=== PATIENT | female | born 1955 | race Caucasian/White ===

== ENCOUNTER 2017-12-28 08:51 | Observation (INO) | payer OTHER ==
[2017-12-28] VITALS (7 sets, daily range): BP systolic 112–159; BP diastolic 60–89; PULSE 74–91; RESP 16–20; TEMP 98.3–103; O2SAT 97–100
[~2017-12-28] VITALS: Ht 160 cm; Wt 60.0 kg
[~2017-12-28 08:51] MED LIST: ASPI81TA11 OR; CALCCHW25 PO; LACO100 PO; LEVE500 PO; MIRTA15 PO; PHEN100 PO; TAB-TAB PO; TOPI25 PO
[2017-12-28] MEDS ORDERED: SODIUM CHLOR 0.9% 1000 ML INJ 1,000 ML IV ONE (09:48)
--- NOTE | 2017-12-28 09:59 | PD ---
HPI Chief Complaint: Seizure Time Seen by Provider: 09:43 Travel History International Travel<30 days: No Contact w/Intl Traveler<30days: No Traveled to known affect area: No History of Present Illness HPI The patient is a 62-year-old female who presents to the emergency department via EMS for possible seizure. The patient apparently was found in her motel room by her neighbor, with her door open, sitting on the toilet naked. According to EMS the neighbor found her sitting on the toilet, naked, somewhat confused with the shower running. There was no witnessed seizure. The patient does have a history of psychosis and seizures according to the EMR. The patient states she does take Dilantin and has a vagal nerve stimulator for her seizures, however, is unable to tell me who her neurologist is. She was unable to tell me the dosing of Dilantin and when she last took her Dilantin. She denies any physical complaints but is a somewhat poor and limited historian who appears to be somewhat postictal. She denies any headache , chest pain, shortness of breath, nausea, vomiting, or abdominal pain during the review of systems, however, limited historian. PFSH Past Medical History Arthritis: No Asthma: Yes Autoimmune Disease: No Blood Disorders: No Anxiety: Yes Depression: Yes Heart Rhythm Problems: Yes (irregular heartbeat) Cancer: No Cardiovascular Problems: No High Cholesterol: No Chemotherapy: No Chest Pain: Yes Congestive Heart Failure: No COPD: Yes Cerebrovascular Accident: No Diabetes: No Diminished Hearing: No Endocrine: No Gastrointestinal Disorders: No GERD: No Genitourinary: Yes Headaches: Yes Hiatal Hernia: No Hypertension: Yes Immune Disorder: No Implanted Vascular Access Dvce: Yes Kidney Stones: No Musculoskeletal: No Neurologic: Yes (seizures/epileptic/restless leg syndrome) Psychiatric: Yes (Organic affective disease.) Reproductive: No Respiratory: Yes Migraines: Yes Radiation Therapy: No Renal Failure: No Seizures: Yes (GRANDMAL/Patient reports since she was 8 months old.) Sickle Cell Disease: No Sleep Apnea: No Thyroid Disease: No Ulcer: No PNEUMOCCOCAL Vaccine (Year): 2011 Menopausal: Yes : 3 Para: 2 Miscarriage: 1 Tubal Ligation: Yes Past Surgical History Abdominal Surgery: Yes AICD: No Arteriovenous Shunt: No Body Medical Devices: Vascular access device Cardiac Surgery: No Section: Yes (X 3) Ear Surgery: No Endocrine Surgery: No Eye Surgery: No Genitourinary Surgery: No Gynecologic Surgery: Yes (LUMPECTOMY L BREAST ) Insulin Pump: No Joint Replacement: No Neurologic Surgery: Yes (R TEMPORAL W/ STIMULATOR) Oral Surgery: No Pacemaker: No Thoracic Surgery: Yes (R LOBECTOMY) Other Surgery: Yes (VAGUS NERVE STIMULATOR) Social History Alcohol Use: No Tobacco Use: Yes (1 PPD) Substance Use: No Allergies-Medications (Allergen,Severity, Reaction): Coded Allergies: No Known Allergies (Verified Adverse Reaction, Unknown, 12/28/17) Reported Meds & Prescriptions Reported Meds & Active Scripts Active Topamax (Topiramate) 25 Mg Tab 50 Mg PO HS 15 Days Mirtazapine 15 Mg Tab 15 Mg PO HS 15 Days Reported Calcium + D (Calcium Carbonate/Cholecalciferol) Chw 1 Tab PO DAILY Multivitamin (Multivitamins) 1 Tab Tab 1 Tab PO DAILY Vimpat (Lacosamide) 100 Mg Tab 100 Mg PO BID Keppra (Levetriacetam) 500 Mg Tab 500 Mg PO BID Dilantin 100 Mg Kapseals (Phenytoin Sodium) 100 Mg Caper 200 Mg PO Q12H Aspirin EC 81 mg (Aspirin) 81 Mg Tab 81 Mg OR DAILY Review of Systems ROS Limitations: Poor Historian Except as stated in HPI: all other systems reviewed are Neg Cardiovascular: No: Chest Pain or Discomfort Respiratory: No: Shortness of Breath Gastrointestinal: No: Nausea, Vomiting Musculoskeletal: No: Weakness Neurologic: Positive: Change in Mentation, Seizures, No: Headache Physical Exam Narrative GENERAL: Awake, alert, pleasant 62-year-old female appears her stated age and is in no acute respiratory distress. She does appear postictal. SKIN: Focused skin assessment warm/dry. Old appearing abrasion to posterior left shoulder. HEAD: Atraumatic. Normocephalic. EYES: Pupils equal and round. 5 mm bilateral and reactive. ENT: No nasal bleeding or discharge. No visible teeth. NECK: Trachea midline. No JVD. CARDIOVASCULAR: Regular, tachycardic with a heart rate 105. Vagal nerve stimulator left upper chest wall. RESPIRATORY: No accessory muscle use. Clear to auscultation. Breath sounds equal bilaterally. GASTROINTESTINAL: Abdomen soft, non-tender, nondistended. No rebound tenderness. MUSCULOSKELETAL: No obvious deformities. No clubbing. No cyanosis. No edema. NEUROLOGICAL: Awake and alert. No obvious cranial nerve deficits. Motor grossly within normal limits. Normal speech. Oriented to person, does not answer questions in regards to month, year, or public administration professor. PSYCHIATRIC: Appears postictal. Data Data Last Documented VS Vital Signs Date Time Temp Pulse Resp B/P (MAP) Pulse Ox O2 Delivery O2 Flow Rate FiO2 12/28/17 10:14 99 Room Air 12/28/17 10:06 92 20 12/28/17 09:58 98.3 159/89 (112) Orders Orders Complete Blood Count With Diff (12/28/17 09:48) Alcohol (Ethanol) (12/28/17 09:48) Phenytoin (Dilantin) (12/28/17 09:48) Drug Screen, Random Urine (12/28/17 09:48) Electrocardiogram (12/28/17 ) Ct Brain W/O Iv Contrast(Rout) (12/28/17 ) Blood Glucose (12/28/17 09:48) Ecg Monitoring (12/28/17 09:48) Iv Access Insert/Monitor (12/28/17 09:48) Oximetry (12/28/17 09:48) Comprehensive Metabolic Panel (12/28/17 09:48) Sodium Chlor 0.9% 1000 Ml Inj (Ns 1000 M (12/28/17 09:48) Sodium Chloride 0.9% Flush (Ns Flush) (12/28/17 10:00) Lorazepam Inj (Ativan Inj) (12/28/17 10:00) Lactic Acid (12/28/17 09:48) Phenytoin Inj (Dilantin Inj) (12/28/17 11:30) Labs Laboratory Tests Test 12/28/17 10:16 12/28/17 10:35 White Blood Count 14.8 TH/MM3 Red Blood Count 3.91 MIL/MM3 Hemoglobin 12.7 GM/DL Hematocrit 36.6 % Mean Corpuscular Volume 93.7 FL Mean Corpuscular Hemoglobin 32.4 PG Mean Corpuscular Hemoglobin Concent 34.6 % Red Cell Distribution Width 13.9 % Platelet Count 218 TH/MM3 Mean Platelet Volume 7.7 FL Neutrophils (%) (Auto) 88.2 % Lymphocytes (%) (Auto) 5.7 % Monocytes (%) (Auto) 6.0 % Eosinophils (%) (Auto) 0.0 % Basophils (%) (Auto) 0.1 % Neutrophils # (Auto) 13.1 TH/MM3 Lymphocytes # (Auto) 0.8 TH/MM3 Monocytes # (Auto) 0.9 TH/MM3 Eosinophils # (Auto) 0.0 TH/MM3 Basophils # (Auto) 0.0 TH/MM3 CBC Comment DIFF FINAL Differential Comment Blood Urea Nitrogen 19 MG/DL Creatinine 1.40 MG/DL Random Glucose 113 MG/DL Total Protein 8.2 GM/DL Albumin 3.7 GM/DL Calcium Level 8.9 MG/DL Alkaline Phosphatase 106 U/L Aspartate Amino Transf (AST/SGOT) 26 U/L Alanine Aminotransferase (ALT/SGPT) 19 U/L Total Bilirubin 0.4 MG/DL Sodium Level 135 MEQ/L Potassium Level 3.4 MEQ/L Chloride Level 101 MEQ/L Carbon Dioxide Level 27.3 MEQ/L Anion Gap 7 MEQ/L Estimat Glomerular Filtration Rate 38 ML/MIN Phenytoin (Dilantin) Level 2.0 MCG/ML Ethyl Alcohol Level LESS THAN 3 MG/DL Lactic Acid Level 1.4 mmol/L Urine Opiates Screen NEG Urine Barbiturates Screen NEG Urine Amphetamines Screen NEG Urine Benzodiazepines Screen NEG Urine Cocaine Screen NEG Urine Cannabinoids Screen NEG MDM Medical Decision Making Medical Screen Exam Complete: Yes Emergency Medical Condition: Yes Medical Record Reviewed: Yes Interpretation(s) EKG reveals normal sinus rhythm with a rate of 93. Wavy baseline. Voltage criteria for LVH. Nonspecific ST changes. Last Impressions Head CT 12/28/17 0000 Signed Impressions: Service Date/Time: Thursday, December 28, 2017 10:18 - CONCLUSION: Previous surgery right temporal region with subtle malacia. Negative for acute process. Archie Gonzales MD FACR Laboratory Tests Test 12/28/17 10:16 12/28/17 10:35 White Blood Count 14.8 TH/MM3 Red Blood Count 3.91 MIL/MM3 Hemoglobin 12.7 GM/DL Hematocrit 36.6 % Mean Corpuscular Volume 93.7 FL Mean Corpuscular Hemoglobin 32.4 PG Mean Corpuscular Hemoglobin Concent 34.6 % Red Cell Distribution Width 13.9 % Platelet Count 218 TH/MM3 Mean Platelet Volume 7.7 FL Neutrophils (%) (Auto) 88.2 % Lymphocytes (%) (Auto) 5.7 % Monocytes (%) (Auto) 6.0 % Eosinophils (%) (Auto) 0.0 % Basophils (%) (Auto) 0.1 % Neutrophils # (Auto) 13.1 TH/MM3 Lymphocytes # (Auto) 0.8 TH/MM3 Monocytes # (Auto) 0.9 TH/MM3 Eosinophils # (Auto) 0.0 TH/MM3 Basophils # (Auto) 0.0 TH/MM3 CBC Comment DIFF FINAL Differential Comment Blood Urea Nitrogen 19 MG/DL Creatinine 1.40 MG/DL Random Glucose 113 MG/DL Total Protein 8.2 GM/DL Albumin 3.7 GM/DL Calcium Level 8.9 MG/DL Alkaline Phosphatase 106 U/L Aspartate Amino Transf (AST/SGOT) 26 U/L Alanine Aminotransferase (ALT/SGPT) 19 U/L Total Bilirubin 0.4 MG/DL Sodium Level 135 MEQ/L Potassium Level 3.4 MEQ/L Chloride Level 101 MEQ/L Carbon Dioxide Level 27.3 MEQ/L Anion Gap 7 MEQ/L Estimat Glomerular Filtration Rate 38 ML/MIN Phenytoin (Dilantin) Level 2.0 MCG/ML Ethyl Alcohol Level LESS THAN 3 MG/DL Lactic Acid Level 1.4 mmol/L Urine Opiates Screen NEG Urine Barbiturates Screen NEG Urine Amphetamines Screen NEG Urine Benzodiazepines Screen NEG Urine Cocaine Screen NEG Urine Cannabinoids Screen NEG Differential Diagnosis Differential diagnosis includes seizure, subtherapeutic Dilantin level, supratherapeutic Dilantin level, hyponatremia, closed head injury, intracranial hemorrhage, psychosis, status epilepticus. Narrative Course IV was established, labs were drawn and sent, and the patient was placed on cardiac telemetry monitoring and continuous pulse oximetry monitoring. EKG was ordered and interpreted. Noncontrast CT of the brain was obtained. The patient had an episode of tachycardia with 120 and staring episode to the left, possible seizure, therefore, was administered Ativan 1 mg intravenously and 1 L of IV fluids. Dilantin was subtherapeutic at 2, therefore, the patient was administered Dilantin [address] reveals postoperative changes and malacia, otherwise unremarkable. Lactic acid and sodium are within normal limits. The patient was reassessed at 11:30 AM, still appears somewhat postictal. She is oriented 1 out of 5. I do not believe the patient can be discharged home without family or friends that she is only oriented 1 out of 5. Therefore, the on-call medical service was paged for observation. I discussed the patient with Dr. Moore who agrees with 23 hour observation. Physician Communication Physician Communication I discussed the patient with Dr. Moore who agrees with 23 hour observation. Diagnosis Primary Impression: Seizure Admitting Information Admitting Physician Requests: Observation Condition: Stable Salvador Rae MD Dec 28, 2017 09:59
[2017-12-28] MEDS ORDERED: SODIUM CHLORIDE 0.9% FLUSH 10 ML FLUSH IVF PRN (10:00)
[2017-12-28] MEDS ORDERED: LORazepam 2 MG/ML VIAL IVS ONE (10:00)
[2017-12-28 10:30] LABS: AUTOMATED NEUTROPHIL # 13.1 TH/MM3 (1.8-7.7); BASOPHIL % 0.1 % (0.0-2.0); HEMATOCRIT 36.6 % (35.0-46.0); HEMOGLOBIN 12.7 GM/DL (11.6-15.3); LYMPH % 5.7 % (9.0-44.0); LYMPHOCYTE # 0.8 TH/MM3 (1.0-4.8); MEAN CELL VOLUME 93.7 FL (80.0-100.0); MEAN CORPUSCULAR HEMOGLOBIN 32.4 PG (27.0-34.0); MEAN CORPUSCULAR HGB CONC 34.6 % (32.0-36.0); MEAN PLATELET VOLUME 7.7 FL (7.0-11.0); MONOCYTE # 0.9 TH/MM3 (0-0.9); NEUT % 88.2 % (16.0-70.0); PLATELET COUNT 218 TH/MM3 (150-450); RED BLOOD COUNT 3.91 MIL/MM3 (4.00-5.30); RED CELL DISTRIBUTION WIDTH 13.9 % (11.6-17.2); WHITE BLOOD COUNT 14.8 TH/MM3 (4.0-11.0)
--- NOTE | 2017-12-28 10:35 | RADRPT ---
EXAM DATE/TIME: 12/28/2017 10:18 [facility] COMPARISON: CT BRAIN W/O CONTRAST, August 28, 2014, 22:17. INDICATIONS : Altered mental status, possible seizure. RADIATION DOSE: 41.01 CTDIvol (mGy) MEDICAL HISTORY : Hypertension. Chronic obstructive pulmonary disease. SURGICAL HISTORY : Craniotomy. Tubal ligation. ENCOUNTER: Initial ACUITY: 1 day PAIN SCALE: Non-responsive LOCATION: cranial TECHNIQUE: Multiple contiguous axial images were obtained of the head. Using automated exposure control and adj ustment of the mA and/or kV according to patient size, radiation dose was kept as low as reasonably a chievable to obtain optimal diagnostic quality images. DICOM format image data is available electro nically for review and comparison. FINDINGS: CEREBRUM: Previous surgery right temporal region the subtle malacia. Ventricle size appropriate. Left hemisph ere are unremarkable. No extra-axial fluid. No evidence for acute infarction. POSTERIOR FOSSA: The cerebellum and brainstem are intact. The 4th ventricle is midline. The cerebellopontine angle i s unremarkable. EXTRACRANIAL: The visualized portion of the orbits is intact. SKULL: Surgery right temporal region CONCLUSION: Previous surgery right temporal region with subtle malacia. Negative for acute process. Archie Gonzales MD FACR on December 28, 2017 at 10:32 Board Certified Radiologist. This report was verified electronically.
[2017-12-28 10:54] LABS: ALBUMIN 3.7 GM/DL (3.4-5.0); ALT (GPT) 19 U/L (10-53); AST (GOT) 26 U/L (15-37); BICARBONATE 27.3 MEQ/L (21.0-32.0); BLOOD UREA NITROGEN 19 MG/DL (7-18); CALCIUM 8.9 MG/DL (8.5-10.1); CHLORIDE 101 MEQ/L (98-107); GLOMERULAR FILTRATION RATE 38 ML/MIN (>89); GLUCOSE,RANDOM 113 MG/DL (74-106); SODIUM (NA) 135 MEQ/L (136-145)
[2017-12-28 10:56] LABS: ALKALINE PHOSPHATASE 106 U/L (45-117); TOTAL BILIRUBIN ADULT 0.4 MG/DL (0.2-1.0); TOTAL PROTEIN 8.2 GM/DL (6.4-8.2)
[2017-12-28] MEDS ORDERED: PHENYTOIN INJ 1,000 MG in SODIUM CHLORIDE 0.9% INJ 100 ML IV ONE (11:30)
[2017-12-28] MEDS ORDERED: NALOXONE HCL 0.4 MG/ML AMP IV PUSH PRN (11:45)
[2017-12-28] MEDS ORDERED: SODIUM CHLORIDE 0.9% FLUSH 10 ML FLUSH IV FLUSH PRN (11:45)
[2017-12-28] MEDS ORDERED: LORazepam 2 MG/ML VIAL IV PUSH PRN (11:45)
--- NOTE | 2017-12-28 12:13 | HHI.HP ---
HPI Service [facility] Primary Care Physician Unknown Admission Diagnosis Seizure, prolonged postictal state Diagnoses: Travel History International Travel<30 Days: No Contact w/Intl Traveler <30 Da: No Traveled to Known Affected Are: No History of Present Illness History from the ER physician communication, interview of medical records. Patient is extremely poor historian. She really cannot give any history to me. However her mental status hasn't improved as compared to when she initially came to the hospital. She was brought in by EMS after being found by her neighbor at a motel with her door open and sitting on a toilet naked. She was confused in the shower was running. There was no witnessed seizures. She does have history of psychiatry issues and seizures. She has available no stimulator. In the emergency room, patient's Dilantin level was subtherapeutic. While in emergency room, patient had an episode where she became tachycardic, looked as though she was having staring blank stayed. She was given Ativan at that time after which her tachycardia improved. Prior records revealed she had significant history of seizures and was following with Dr. Ellison as an outpatient. Patient herself is not able to give any meaningful history. She denies pretty much every symptoms. She is however noted to be quite warm at the time of my exam. Therefore I had asked for the nurse to check for temperature. Review of Systems ROS Limitations: Altered Mental Status Except as stated in HPI: all other systems reviewed are Neg Past Family Social History Past Medical History History of seizures Hypertension Restless leg syndrome Chronic tobacco abuse COPD Past Surgical History Lobectomy for seizure control Lumpectomy Vagal stimulator for seizure Allergies: Coded Allergies: No Known Allergies (Verified Allergy, Unknown, 12/28/17) Family History Per EMR: Distant relatives with seizures but no first degree relatives Social History Per EMR: Patient is a chronic tobacco abuse patient. She lives with her boyfriend who is over 80 years old per EMR. Today she did tell me that she lives with a senior citizen. Physical Exam Vital Signs Vital Signs Date Time Temp Pulse Resp B/P (MAP) Pulse Ox O2 Delivery O2 Flow Rate FiO2 12/28/17 10:14 99 Room Air 12/28/17 10:06 92 20 99 Room Air 12/28/17 09:58 98.3 91 18 159/89 (112) 97 Physical Exam GENERAL: This is a well-nourished, well-developed patient, in no apparent distress. Awake. But is confused SKIN: No rashes, ecchymoses or lesions. Cool and dry. Tactile fever HEAD: Atraumatic. Normocephalic. No temporal or scalp tenderness. EYES: No scleral icterus. No injection or drainage. ENT: Nose without bleeding, purulent drainage or septal hematoma. . Airway patent. NECK: Trachea midline. No JVD Supple, nontender, no meningeal signs. CARDIOVASCULAR: Regular rate and rhythm without murmurs, gallops, or rubs. RESPIRATORY: Clear to auscultation. Breath sounds equal bilaterally. No wheezes , rales, or rhonchi. GASTROINTESTINAL: Abdomen soft, non-tender, nondistended. No guarding. MUSCULOSKELETAL: Extremities without clubbing, cyanosis, or edema. . No calf tenderness. NEUROLOGICAL: Awake, confused. At times her answers are inappropriate. Motor and sensory grossly within normal limits. Normal speech. Laboratory Laboratory Tests Test 12/28/17 10:16 12/28/17 10:35 White Blood Count 14.8 Red Blood Count 3.91 Hemoglobin 12.7 Hematocrit 36.6 Mean Corpuscular Volume 93.7 Mean Corpuscular Hemoglobin 32.4 Mean Corpuscular Hemoglobin Concent 34.6 Red Cell Distribution Width 13.9 Platelet Count 218 Mean Platelet Volume 7.7 Neutrophils (%) (Auto) 88.2 Lymphocytes (%) (Auto) 5.7 Monocytes (%) (Auto) 6.0 Eosinophils (%) (Auto) 0.0 Basophils (%) (Auto) 0.1 Neutrophils # (Auto) 13.1 Lymphocytes # (Auto) 0.8 Monocytes # (Auto) 0.9 Eosinophils # (Auto) 0.0 Basophils # (Auto) 0.0 CBC Comment DIFF FINAL Differential Comment Blood Urea Nitrogen 19 Creatinine 1.40 Random Glucose 113 Total Protein 8.2 Albumin 3.7 Calcium Level 8.9 Alkaline Phosphatase 106 Aspartate Amino Transf (AST/SGOT) 26 Alanine Aminotransferase (ALT/SGPT) 19 Total Bilirubin 0.4 Sodium Level 135 Potassium Level 3.4 Chloride Level 101 Carbon Dioxide Level 27.3 Anion Gap 7 Estimat Glomerular Filtration Rate 38 Phenytoin (Dilantin) Level 2.0 Ethyl Alcohol Level LESS THAN 3 Lactic Acid Level 1.4 Urine Opiates Screen NEG Urine Barbiturates Screen NEG Urine Amphetamines Screen NEG Urine Benzodiazepines Screen NEG Urine Cocaine Screen NEG Urine Cannabinoids Screen NEG Result Diagram: 12/28/17 1016 12/28/17 1016 Imaging Last [address] 12/28/17 0000 Signed Impressions: Service Date/Time: Thursday, December 28, 2017 10:18 - CONCLUSION: Previous surgery right temporal region with subtle malacia. Negative for acute process. Archie Gonzales MD FACR Chest X-Ray 12/28/17 0000 Signed Impressions: Service Date/Time: Thursday, December 28, 2017 12:40 - CONCLUSION: No acute disease. MD Christianne Knight VTE Risk Assessment Caprini VTE Risk Assessment: Mod/High Risk (score >= 2) Caprini Risk Assessment Model Point Value = 1 Point Value = 2 Point Value = 3 Point Value = 5 Age 41-60 Minor surgery BMI > 25 kg/m2 Swollen legs Varicose veins or History of unexplained or recurrent spontaneous Oral contraceptives or hormone replacement Sepsis (< 1 month) Serious lung disease, including pneumonia (< 1 month) Abnormal pulmonary function Acute myocardial infarction Congestive heart failure (< 1 month) History of inflammatory bowel disease Medical patient at bed rest Age 61-74 Arthroscopic surgery Major open surgery (> 45 min) Laparoscopic surgery (> 45 min) Malignancy Confined to bed (> 72 hours) Immobilizing plaster cast Central venous access Age >= 75 History of VTE Family history of VTE Factor V Leiden Prothrombin [id number] Lupus anticoagulant Anticardiolipin antibodies Elevated serum homocysteine Heparin-induced thrombocytopenia Other congenital or acquired thrombophilia Stroke (< 1 month) Elective arthroplasty Hip, pelvis, or leg fracture Acute spinal cord injury (< 1 month) Prophylaxis Regimen Total Risk Factor Score Risk Level Prophylaxis Regimen 0-1 Low Early ambulation 2 Moderate Order ONE of the following: *Sequential Compression Device (SCD) *Heparin 5000 units SQ BID 3-4 Higher Order ONE of the following medications: *Heparin 5000 units SQ TID *Enoxaparin/Lovenox 40 mg SQ daily (WT < 150 kg, CrCl > 30 mL/min) *Enoxaparin/Lovenox 30 mg SQ daily (WT < 150 kg, CrCl > 10-29 mL/min) *Enoxaparin/Lovenox 30 mg SQ BID (WT < 150 kg, CrCl > 30 mL/min) AND/OR *Sequential Compression Device (SCD) 5 or more Highest Order ONE of the following medications: *Heparin 5000 units SQ TID (Preferred with Epidurals) *Enoxaparin/Lovenox 40 mg SQ daily (WT < 150 kg, CrCl > 30 mL/min) *Enoxaparin/Lovenox 30 mg SQ daily (WT < 150 kg, CrCl > 10-29 mL/min) *Enoxaparin/Lovenox 30 mg SQ BID (WT < 150 kg, CrCl > 30 mL/min) AND *Sequential Compression Device (SCD) Assessment and Plan Assessment and Plan Impression: Breakthrough seizures Subtherapeutic Dilantin level Tactile fever History of seizures Hypertension Restless leg syndrome Chronic tobacco abuse COPD Plan: Patient was loaded with Dilantin in ER. Will follow Dilantin levels. Start back on home dose of Dilantin. tool repair technician to reconcile patient's home meds. Can call patient's neurologist office and pharmacy to get the medications list. Resume home meds for hypertension. EEG. Resume rest of her antiseizure medications. Nebulizers when necessary. Neurology consulted I do suspect the patient has a fever. There for chest x-ray, UA, urine culture ordered. I would not start patient on antibiotics yet as she is not giving me any history or source. If the above workup is showing something, then would start antibiotics. Later on during the day, patient was becoming a little more awake and alert and patient told me on her reexamination that she usually gets fevers with seizure episodes. Review of medical records also reveals as inpatient has similar fevers and prior hospitalizations with seizures. DVT prophylaxis with ambulation. Physical therapy evaluation Case management for discharge planning. Discussed Condition With Patient, Matilde Catherine M.D., MD Dec 28, 2017 12:13
[2017-12-28] MEDS ORDERED: POTASSIUM CHLORIDE 25 MEQ EFFERVESCENT TAB PO ONE (12:30)
[2017-12-28] MEDS: ACETAMINOPHEN 325 MG TAB PO PRN ×2 (12:49→23:56)
--- NOTE | 2017-12-28 12:49 | RADRPT ---
EXAM DATE/TIME: 12/28/2017 12:40 [facility] COMPARISON: No previous studies available for comparison. INDICATIONS : Cough, short of breath. MEDICAL HISTORY : Myocardial infarction. SURGICAL HISTORY : Pacemaker. ENCOUNTER: Initial ACUITY: 1 day PAIN SCORE: 0/10 LOCATION: Bilateral chest FINDINGS: A single view of the chest demonstrates the lungs to be symmetrically aerated without evidence of mas s, infiltrate or effusion. A left upper chest neural stimulator device with wires in the region of th e cervical spine. The cardiomediastinal contours are unremarkable. Osseous structures are intact. CONCLUSION: No acute disease. Wilman Stoll MD on December 28, 2017 at 12:46 Board Certified Radiologist. This report was verified electronically.
[2017-12-28] MEDS ORDERED: LEVE500 PO (13:04)
[2017-12-28] MEDS ORDERED: DILA100C PO ×2 (13:04)
[2017-12-28] MEDS ORDERED: HYDR12.57 PO (13:04)
[2017-12-28] MEDS ORDERED: PROZ20CA11 PO (13:04)
[2017-12-28] MEDS ORDERED: LACO100 PO (13:04)
--- NOTE | 2017-12-28 13:35 | EKG ---
Date Performed: 12/28/2017 Time Performed: 10:01:30 PTAGE: 62 years EKG: Sinus rhythm VOLTAGE CRITERIA FOR LVH MINIMAL ST DEPRESSION ABNORMAL ECG PREVIOUS TRACING : 12/09/2015 16.44 DOCTOR: Kanu Dash Interpretating Date/Time 12/28/2017 13:33:29
[2017-12-28] MEDS: SODIUM CHLOR 0.9% 1000 ML INJ 1,000 ML IV SCH ×2 (13:40→20:36)
[2017-12-28 13:52] LABS: BILIRUBIN, URINE NEG (NEG); BLOOD, URINE SMALL (NEG); GLUCOSE,URINE NEG (NEG); HYALINE CAST, URINE 1 /lpf (RARE); KETONE, URINE NEG (NEG); MUCUS URINE FEW /lpf (OCC); NITRITE,URINE NEG (NEG); PH, URINE 7.5 (5.0-8.5); SQUAMOUS EPITHELIAL CELL URINE 1 /hpf (0-5); URINE COLOR YELLOW (YELLW/STRAW); URINE LEUKOCYTE ESTERASE NEG (NEG)
[2017-12-28] MEDS: SODIUM CHLORIDE 0.9% FLUSH 10 ML FLUSH IV FLUSH SCH (20:36)
[2017-12-28] MEDS: LACOSAMIDE 100 MG TAB PO SCH (20:48)
[2017-12-28] MEDS: PHENYTOIN SODIUM 100 MG CAP PO SCH (20:48)
--- NOTE | 2017-12-28 21:45 | MB ---
cc: Aniket Avalos MD, PhD DATE OF CONSULT: REASON FOR CONSULTATION: Possible seizure. HISTORY OF PRESENT ILLNESS: Ms. Green is a 62-year-old female who has a seizure disorder she states since . She states she only takes Dilantin 100 mg t.i.d., Vimpat 100 mg b.i.d. and Keppra 500 mg t.i.d. She recently moved down from [place]. She was found very confused, possibly postictal, although a seizure was not actually witnessed but she thinks she may have had a seizure. She thinks she may have missed some doses of her medications due to the move. PAST MEDICAL HISTORY: History of seizure disorder. She has a history of vagus nerve stimulator in place, history of right lobectomy, breast lumpectomy and she has a history of right temporal lobectomy for seizure control. NEUROLOGICAL EXAMINATION: VITAL SIGNS: Blood pressure 123/64, pulse is 78, respiratory rate is 20, temperature is 98.4 degrees. HIGH ____ FUNCTION: She is alert, oriented x 3, speech is normal. Cranial nerves intact. Motor exam 5/5. She has ____ left upper and lower extremities. There is no drift. Reflexes are symmetric. CT of the brain shows right temporal lobe surgery with myelomalacia. No acute change. LABORATORY DATA: The white count is 14,800, hemoglobin 12.7, hematocrit 36.6%, platelet count 218,000. Sodium is 135, potassium 3.4, chloride 101, CO2 27.3, the BUN is 19, creatinine 1.4, GFR is 38, glucose 113, AST 26, ALT is 19. Dilantin level on admission was 2. Tox screen negative. The patient did receive a loading dose of Dilantin 1 gm IV. IMPRESSION: Recurrent seizure, I suspected probably related to missing some of her medications. Would recommend continuing the current dose of Dilantin 100 mg t.i.d., Vimpat 100 mg b.i.d., Keppra 500 mg t.i.d. Will obtain and EEG as well. Aniket Avalos MD, PhD NEHEMIAS/rt , 09:22 PM , 09:44 PM
[2017-12-29] VITALS (7 sets, daily range): BP systolic 124–170; BP diastolic 63–87; PULSE 69–80; RESP 16–20; TEMP 98–98.9; O2SAT 96–100
[2017-12-29] MEDS: SODIUM CHLOR 0.9% 1000 ML INJ 1,000 ML IV SCH (05:14)
[2017-12-29 06:48] LABS: AUTOMATED NEUTROPHIL # 5.3 TH/MM3 (1.8-7.7); BASOPHIL % 0.6 % (0.0-2.0); HEMATOCRIT 33.2 % (35.0-46.0); HEMOGLOBIN 11.3 GM/DL (11.6-15.3); LYMPHOCYTE # 1.6 TH/MM3 (1.0-4.8); MEAN CELL VOLUME 95.2 FL (80.0-100.0); MEAN CORPUSCULAR HEMOGLOBIN 32.3 PG (27.0-34.0); MONOCYTE # 0.9 TH/MM3 (0-0.9); NEUT % 67.4 % (16.0-70.0); PLATELET COUNT 150 TH/MM3 (150-450); RED BLOOD COUNT 3.48 MIL/MM3 (4.00-5.30); RED CELL DISTRIBUTION WIDTH 13.9 % (11.6-17.2); WHITE BLOOD COUNT 7.9 TH/MM3 (4.0-11.0)
[2017-12-29 07:26] LABS: BICARBONATE 27.2 MEQ/L (21.0-32.0); CALCIUM 8.5 MG/DL (8.5-10.1); CREATININE 1.11 MG/DL (0.50-1.00)
[2017-12-29] MEDS: HYDROCHLOROTHIAZIDE 12.5 MG CAP PO SCH (08:42)
[2017-12-29] MEDS: PHENYTOIN SODIUM 100 MG CAP PO SCH ×2 (08:42→21:56)
[2017-12-29] MEDS: FLUoxetine HCL 20 MG CAP PO SCH (08:42)
[2017-12-29] MEDS: SODIUM CHLORIDE 0.9% FLUSH 10 ML FLUSH IV FLUSH SCH ×2 (08:42→21:00)
[2017-12-29] MEDS: levETIRAcetam 500 MG TAB PO SCH ×3 (08:42→17:51)
[2017-12-29] MEDS: LACOSAMIDE 100 MG TAB PO SCH ×2 (08:42→21:57)
[2017-12-29] MEDS ORDERED: levETIRAcetam 500 MG TAB PO SCH (09:00)
--- NOTE | 2017-12-29 09:08 | MG ---
cc: Nael Oconnell MD EEG #[id number] INDICATIONS: Right temporal encephalomalacia, encephalopathy, confusion, epilepsy, fever. MEDICATIONS: 1. Keppra 2. Dilantin 3. Prozac 4. Ativan DESCRIPTION OF RECORD: Diffuse alpha and theta rhythms are noted. A 6 Hz diffuse background is noted at times. Photic stimulation is performed without significant posterior driving. Some bitemporal theta and delta slowing is noted. No epileptiform or seizure activity is noted. I do not see any definite focal right-sided slowing or epileptiform activity. Some feet jerking is noted towards the end of the recording, but this does not correlate with any seizure activity. Some leg jerking is noted also again. Not correlating with any seizure activity. Hyperventilation was performed without significant change in the background. A few small sharps are noted actually over the left temporal head region, although there is a fair amount of movement artifact. It is unclear if these could be artifactual or not. IMPRESSION: Diffuse slowing consistent with a moderate diffuse encephalopathy. No focal right-sided abnormality is noted. Some small sharps are seen over the left mid temporal head region, but could be artifactual. Clinical correlation is needed. Leg jerks did not correlate with any seizure activity. Nael Oconnell MD DJM/DL , 08:46 AM , 09:07 AM
--- NOTE | 2017-12-29 10:09 | HHI.FF ---
Face to Face Verification Diagnosis: (1) Seizure (2) HTN (hypertension) Home Health Nursing Order: Medical education Signs/symptoms of disease process Nursing assessment with vital signs [place] [employer] Order: To Evaluate: Living conditions/environment Order: To Provide: Long range planning, Community services I have seen patient Tina Green on 12/29/17. My clinical findings support the need for the requested home health care services because: Ltd mobility - disease progression Deconditioned w/ increased weakness Limited ability to care for self Impaired cognition/judgement I certify that my clinical findings support that this patient is homebound because: Impaired cognitive ability/safety Unsafe to leave home unassisted Unable to use public transportation Renita Ibarra PA-C Dec 29, 2017 10:09
--- NOTE | 2017-12-29 13:27 | HHI.PR ---
Subjective Remarks Follow-up seizure. States she is feeling better denies headache, dizziness and muscle pains. She has not been out of bed yet. Objective Vitals Vital Signs Date Time Temp Pulse Resp B/P (MAP) Pulse Ox O2 Delivery O2 Flow Rate FiO2 12/29/17 13:01 98.7 73 20 155/82 (106) 100 12/29/17 08:10 98.8 69 20 152/72 (98) 100 12/29/17 06:32 98.4 71 17 137/63 (87) 100 12/29/17 00:59 18 12/29/17 00:48 98.9 76 16 124/65 (84) 98 12/28/17 19:23 98.4 78 20 122/64 (83) 100 12/28/17 17:56 74 12/28/17 16:22 99.6 86 16 112/60 (77) 98 I/O 12/28/17 12/28/17 12/28/17 12/29/17 12/29/17 12/29/17 07:00 15:00 23:00 07:00 15:00 23:00 Intake Total 1120 ml 1400 ml 1200 ml Balance 1120 ml 1400 ml 1200 ml Intake Oral 750 ml 450 ml IV Total 1120 ml 650 ml 750 ml Result Diagram: 12/29/17 0540 12/29/17 0540 Imaging Last Impressions Head CT 12/28/17 0000 Signed Impressions: Service Date/Time: Thursday, December 28, 2017 10:18 - CONCLUSION: Previous surgery right temporal region with subtle malacia. Negative for acute process. Archie Gonzales MD FACR Chest X-Ray 12/28/17 0000 Signed Impressions: Service Date/Time: Thursday, December 28, 2017 12:40 - CONCLUSION: No acute disease. Wilman Stoll MD Objective Remarks GENERAL: Well-developed well-nourished in no distress SKIN: No rashes, ecchymoses or lesions. Cool and dry. NECK: Trachea midline. No JVD Supple, nontender, no meningeal signs. CARDIOVASCULAR: Regular rate and rhythm without murmurs, gallops, or rubs. RESPIRATORY: Clear to auscultation. Breath sounds equal bilaterally. No wheezes , rales, or rhonchi. GASTROINTESTINAL: Abdomen soft, non-tender, nondistended. No guarding. MUSCULOSKELETAL: Extremities without clubbing, cyanosis, or edema. No calf tenderness. NEUROLOGICAL: Awake, alert and oriented. Motor and sensory grossly within normal limits. Normal speech. Procedures none A/P Problem List: (1) Seizure ICD Code: R56.9 - Convulsions Status: Acute Assessment and Plan Breakthrough seizure secondary to subtherapeutic Dilantin level. Patient received loading dose repeat Dilantin level is therapeutic. Good fall precautions. Fever and leukocytosis, improved without intervention. Patient without evidence of infection no neck tenderness, pain, headache, numbness and focal weakness. We will continue to monitor Chronic kidney disease stage III. Avoid nephrotoxins Medical conditions are hypertension, Restless leg syndrome, Chronic tobacco abuse and COPD DVT prophylaxis with SCD and early ambulation Discharge Planning Possible discharge in 1-2 days with repeat antiepileptic levels in 1 week Leonard Fontenot MD Dec 29, 2017 13:27
[2017-12-29] MEDS ORDERED: LEVE500 PO (16:33)
--- NOTE | 2017-12-29 20:32 | HHI.PR ---
Review/Management Diagnosis sz--stable on current therapy Plan She states she was taking dilantin 300 mg daily. THerefore, will increase dilantin to 200 mg bid. If stable tomorrow , ok to dc home from neurologic standpoint and follow up with me in 3 weeks PT should not drive for 6 months sz free. Diagnosis/Plan: Subjective Subjective Comments No acute events reported No recurrent sz. Active Medications Current Medications Medications (Trade) Dose Ordered Sig/[place] Route Start Time Stop Time Status Last Admin (NS Flush) 2 ml UNSCH PRN IV FLUSH 12/28/17 11:45 (NS Flush) 2 ml BID IV FLUSH 12/28/17 21:00 12/29/17 08:42 (Narcan Inj) 0.4 mg UNSCH PRN IV PUSH 12/28/17 11:45 (Ativan Inj) 1 mg Q15M PRN IV PUSH 12/28/17 11:45 12/28/17 23:56 Sodium Chloride 1,000 ml @ 65 mls/hr [id number] IV 12/28/17 12:15 12/29/17 05:14 (Tylenol) 650 mg Q4H PRN PO 12/28/17 12:30 12/28/17 23:56 (PROzac) 20 mg DAILY PO 12/29/17 09:00 12/29/17 08:42 (Microzide) 12.5 mg DAILY PO 12/29/17 09:00 12/29/17 08:42 (Vimpat) 100 mg BID PO 12/28/17 21:00 12/29/17 08:42 (Dilantin) 100 mg DAILY PO 12/29/17 09:00 12/29/17 08:42 (Dilantin) 200 mg HS PO 12/28/17 21:00 12/28/17 20:48 (Keppra) 500 mg TID PO 12/29/17 09:00 12/29/17 17:51 Allergies Allergies Coded Allergies No Known Allergies (Verified Allergy, Unknown, 12/28/17) Exam I&O / VS 12/29/17 12/29/17 12/30/17 14:59 22:59 06:59 Intake Total 2200 ml Balance 2200 ml Intake Oral 750 ml IV Total 1450 ml Vital Signs Date Time Temp Pulse Resp B/P (MAP) Pulse Ox O2 Delivery O2 Flow Rate FiO2 12/29/17 17:05 98.0 72 20 170/87 (114) 96 12/29/17 13:01 98.7 73 20 155/82 (106) 100 12/29/17 08:10 98.8 69 20 152/72 (98) 100 12/29/17 06:32 98.4 71 17 137/63 (87) 100 12/29/17 00:59 18 12/29/17 00:48 98.9 76 16 124/65 (84) 98 Exam Comments alert, oriented times three, speech normal CN intact MOTOR 5/5 BUE Objective Micro and Labs Laboratory Tests Test 12/29/17 05:40 12/29/17 08:05 White Blood Count 7.9 Red Blood Count 3.48 Hemoglobin 11.3 Hematocrit 33.2 Mean Corpuscular Volume 95.2 Mean Corpuscular Hemoglobin 32.3 Mean Corpuscular Hemoglobin Concent 34.0 Red Cell Distribution Width 13.9 Platelet Count 150 Mean Platelet Volume 8.0 Neutrophils (%) (Auto) 67.4 Lymphocytes (%) (Auto) 20.0 Monocytes (%) (Auto) 12.0 Eosinophils (%) (Auto) 0.0 Basophils (%) (Auto) 0.6 Neutrophils # (Auto) 5.3 Lymphocytes # (Auto) 1.6 Monocytes # (Auto) 0.9 Eosinophils # (Auto) 0.0 Basophils # (Auto) 0.0 CBC Comment DIFF FINAL Differential Comment Blood Urea Nitrogen 19 Creatinine 1.11 Random Glucose 94 Calcium Level 8.5 Sodium Level 142 Potassium Level 4.3 Chloride Level 108 Carbon Dioxide Level 27.2 Anion Gap 7 Estimat Glomerular Filtration Rate 50 Phenytoin (Dilantin) Level 17.7 Date/Time Source Procedure Growth Status 12/28/17 15:55 Blood Peripheral Aerobic Blood Culture - Preliminary NO GROWTH IN 1 DAY Resulted 12/28/17 15:55 Blood Peripheral Anaerobic Blood Culture - Preliminary NO GROWTH IN 1 DAY Resulted Diagnostic Tests EEG--sharp activity noted left mid temporal area Aniket Avalos MD PhD Dec 29, 2017 20:32
[2017-12-30] VITALS (9 sets, daily range): BP systolic 133–187; BP diastolic 61–86; PULSE 64–79; RESP 16–20; TEMP 98–98.6; O2SAT 98–100
[2017-12-30] MEDS: SODIUM CHLOR 0.9% 1000 ML INJ 1,000 ML IV SCH ×2 (00:15→18:49)
[2017-12-30] MEDS ORDERED: LISI-515 PO (03:54)
[2017-12-30] MEDS: LISINOPRIL 20 MG TAB PO SCH ×2 (04:29→08:54)
[2017-12-30 08:46] LABS: BICARBONATE 28.4 MEQ/L (21.0-32.0); CALCIUM 8.7 MG/DL (8.5-10.1); CREATININE 0.92 MG/DL (0.50-1.00)
[2017-12-30] MEDS: HYDROCHLOROTHIAZIDE 12.5 MG CAP PO SCH (08:54)
[2017-12-30] MEDS: PHENYTOIN SODIUM 100 MG CAP PO SCH ×2 (08:54→22:05)
[2017-12-30] MEDS: FLUoxetine HCL 20 MG CAP PO SCH (08:54)
[2017-12-30] MEDS: LACOSAMIDE 100 MG TAB PO SCH ×2 (08:55→22:05)
[2017-12-30] MEDS: SODIUM CHLORIDE 0.9% FLUSH 10 ML FLUSH IV FLUSH SCH ×2 (08:55→21:00)
[2017-12-30] MEDS: levETIRAcetam 500 MG TAB PO SCH ×3 (08:55→18:49)
--- NOTE | 2017-12-30 08:58 | HHI.PR ---
Subjective Remarks Follow-up seizure. She feels terrible. Complains of constant upper back, anterior chest and right upper extremity pain since she had a seizure. Also reports of dry mouth with burning sensation in her throat. Feels her gums are swollen. She thinks her stimulator is causing her symptoms does not have any information about the stimulator except it was placed in she has over 10 years ago. Battery was just changed 2 months ago in [place]. Discussed with RN, will contact neurology, [facility] and family regarding stimulator Objective Vitals Vital Signs Date Time Temp Pulse Resp B/P (MAP) Pulse Ox O2 Delivery O2 Flow Rate FiO2 12/30/17 08:39 98.0 79 16 172/74 (106) 99 12/30/17 04:31 78 12/30/17 03:51 74 18 176/86 (116) 100 12/30/17 02:41 98.2 70 18 187/82 (117) 100 12/30/17 00:30 64 12/29/17 21:14 98.6 80 18 149/71 (97) 98 12/29/17 20:15 71 12/29/17 17:05 98.0 72 20 170/87 (114) 96 12/29/17 13:01 98.7 73 20 155/82 (106) 100 I/O 12/29/17 12/29/17 12/29/17 12/30/17 12/30/17 12/30/17 07:00 15:00 23:00 07:00 15:00 23:00 Intake Total 1200 ml 2200 ml Balance 1200 ml 2200 ml Intake Oral 450 ml 750 ml IV Total 750 ml 1450 ml Result Diagram: 12/29/17 0540 12/30/17 0725 Imaging Last Impressions Head CT 12/28/17 0000 Signed Impressions: Service Date/Time: Thursday, December 28, 2017 10:18 - CONCLUSION: Previous surgery right temporal region with subtle malacia. Negative for acute process. Archie Gonzales MD FACR Chest X-Ray 12/28/17 0000 Signed Impressions: Service Date/Time: Thursday, December 28, 2017 12:40 - CONCLUSION: No acute disease. Wilman Stoll MD Objective Remarks GENERAL: Well-developed well-nourished in no distress SKIN: No rashes, ecchymoses or lesions. Cool and dry. NECK: Trachea midline. No JVD Supple, nontender, no meningeal signs. CARDIOVASCULAR: Regular rate and rhythm without murmurs, gallops, or rubs. RESPIRATORY: Clear to auscultation. Breath sounds equal bilaterally. No wheezes , rales, or rhonchi. GASTROINTESTINAL: Abdomen soft, non-tender, nondistended. No guarding. MUSCULOSKELETAL: Extremities without clubbing, cyanosis, or edema. No calf tenderness. Tender upper back but spine is okay. Right forearm is slightly swollen but not warm to touch. It is slightly red in the dorsal area over antecubital where she had previous IV site NEUROLOGICAL: Awake, alert and oriented. Motor and sensory grossly within normal limits. Normal speech. Procedures none A/P Problem List: (1) Seizure ICD Code: R56.9 - Convulsions Status: Acute Assessment and Plan Breakthrough seizure secondary to subtherapeutic Dilantin level. Neurology recommended further increase of Dilantin to 200 mg twice a day. Repeat levels. Seizure and precautions. Fever and leukocytosis, improved without intervention. Patient without evidence of infection no neck tenderness, pain, headache, numbness and focal weakness. Improved we will continue to monitor Possible heartburn vs adverse reaction from meds or from stimulator. Start PPI , antireflux mechanism discussed with patient. Will obtain information about stimulator. Dw neuro sxs likely from stimulator which will be adjusted in the clinic in 2 weeks Right FA swelling with slight erythema likely from IV infiltration will monitor for infection. Elevation and warm compresses Chronic kidney disease stage III. Improving. Avoid nephrotoxins Medical conditions are hypertension, Restless leg syndrome, Chronic tobacco abuse and COPD DVT prophylaxis with SCD and early ambulation Discharge Planning Stable for discharge if tolerating diet. Repeat antiepileptic levels in 1 week Leonard Fontenot MD Dec 30, 2017 08:58
[2017-12-30] MEDS ORDERED: LISINOPRIL 20 MG TAB PO SCH (09:00)
[2017-12-30] MEDS ORDERED: CYCLOBENZAPRINE HCL 10 MG TAB PO PRN (09:00)
[2017-12-30] MEDS ORDERED: PILL SPLITTER OTHER PRN (09:00)
[2017-12-30] MEDS ORDERED: ALUMINUM/MAGNESIUM/SIMETH 30 ML CUP PO PRN (09:15)
[2017-12-30] MEDS ORDERED: CALCIUM CARBONATE 500 MG CHEWABLE TAB CHEW PRN (09:15)
[2017-12-30] MEDS ORDERED: POTASSIUM CHLORIDE 20 MEQ CONTROLLED RELEASE TAB PO ONE (09:30)
[2017-12-30] MEDS: PANTOPRAZOLE SOD 40 MG DELAYED RELEASE TAB PO SCH (10:20)
[2017-12-30 13:48] LABS: PHENYTOIN (DILANTIN) 19.9 MCG/ML (10.0-20.0)
[2017-12-30] MEDS ORDERED: DILA100C PO (17:17)
[2017-12-30] MEDS ORDERED: PANT40TA3 PO (17:17)
[2017-12-31 00:15] VITALS: PULSE 65
[2017-12-31 03:24] VITALS: BP 121/63; PULSE 77; RESP 18; TEMP 98.9; O2SAT 98
[2017-12-31 04:15] VITALS: PULSE 61
[2017-12-31] MEDS: SODIUM CHLOR 0.9% 1000 ML INJ 1,000 ML IV SCH (04:58)
--- NOTE | 2017-12-31 07:51 | HHI.PR ---
Subjective Remarks Follow-up seizure Objective Vitals Vital Signs Date Time Temp Pulse Resp B/P (MAP) Pulse Ox O2 Delivery O2 Flow Rate FiO2 12/31/17 04:15 61 12/31/17 03:24 98.9 77 18 121/63 (82) 98 12/31/17 00:15 65 12/30/17 20:15 75 12/30/17 20:08 98.2 71 18 133/61 (85) 98 12/30/17 16:16 98.6 64 20 133/63 (86) 100 12/30/17 12:39 98.0 73 16 138/65 (89) 100 12/30/17 08:39 98.0 79 16 172/74 (106) 99 Result Diagram: 12/29/17 0540 12/30/17 0725 Imaging Last Impressions Head CT 12/28/17 0000 Signed Impressions: Service Date/Time: Thursday, December 28, 2017 10:18 - CONCLUSION: Previous surgery right temporal region with subtle malacia. Negative for acute process. Archie Gonzales MD FACR Chest X-Ray 12/28/17 0000 Signed Impressions: Service Date/Time: Thursday, December 28, 2017 12:40 - CONCLUSION: No acute disease. Wilman Stoll MD Objective Remarks GENERAL: Well-developed well-nourished in no distress SKIN: No rashes, ecchymoses or lesions. Cool and dry. NECK: Trachea midline. No JVD Supple, nontender, no meningeal signs. CARDIOVASCULAR: Regular rate and rhythm without murmurs, gallops, or rubs. RESPIRATORY: Clear to auscultation. Breath sounds equal bilaterally. No wheezes , rales, or rhonchi. GASTROINTESTINAL: Abdomen soft, non-tender, nondistended. No guarding. MUSCULOSKELETAL: Extremities without clubbing, cyanosis, or edema. No calf tenderness. Tender upper back but spine is okay. Right forearm is slightly swollen but not warm to touch. It is slightly red in the dorsal area over antecubital where she had previous IV site NEUROLOGICAL: Awake, alert and oriented. Motor and sensory grossly within normal limits. Normal speech. Procedures none A/P Problem List: (1) Seizure ICD Code: R56.9 - Convulsions Status: Acute Assessment and Plan Breakthrough seizure secondary to subtherapeutic Dilantin level. Neurology recommended further increase of Dilantin to 200 mg twice a day. Repeat levels. Seizure and precautions. Fever and leukocytosis, improved without intervention. Patient without evidence of infection no neck tenderness, pain, headache, numbness and focal weakness. Improved we will continue to monitor Possible heartburn vs adverse reaction from meds or from stimulator. Start PPI , antireflux mechanism discussed with patient. Will obtain information about stimulator. Dw neuro sxs likely from stimulator which will be adjusted in the clinic in 2 weeks Right FA swelling with slight erythema likely from IV infiltration will monitor for infection. Elevation and warm compresses Chronic kidney disease stage III. Improving. Avoid nephrotoxins Medical conditions are hypertension, Restless leg syndrome, Chronic tobacco abuse and COPD DVT prophylaxis with SCD and early ambulation Discharge Planning Stable for discharge. Repeat antiepileptic levels in 1 week Leonard Fontenot MD Dec 31, 2017 07:51
[2017-12-31 08:00] VITALS: PULSE 69
[2017-12-31 08:46] VITALS: BP 139/65; PULSE 64; RESP 18; TEMP 98.9; O2SAT 100
[2017-12-31] MEDS ORDERED: PHENYTOIN SODIUM 100 MG CAP PO SCH (09:00)
[2017-12-31] MEDS: SODIUM CHLORIDE 0.9% FLUSH 10 ML FLUSH IV FLUSH SCH (09:00)
[2017-12-31] MEDS: levETIRAcetam 500 MG TAB PO SCH ×2 (10:03→13:55)
[2017-12-31] MEDS: HYDROCHLOROTHIAZIDE 12.5 MG CAP PO SCH (10:04)
[2017-12-31] MEDS: FLUoxetine HCL 20 MG CAP PO SCH (10:04)
[2017-12-31] MEDS: PANTOPRAZOLE SOD 40 MG DELAYED RELEASE TAB PO SCH (10:04)
[2017-12-31] MEDS: LACOSAMIDE 100 MG TAB PO SCH (10:05)
[2017-12-31] MEDS: LISINOPRIL 20 MG TAB PO SCH (10:06)
[2017-12-31 11:49] VITALS: BP 115/56; PULSE 64; RESP 18; TEMP 98.9; O2SAT 100
--- NOTE | 2017-12-31 16:20 | HHI.DS ---
Discharge Summary Admission Date Dec 28, 2017 at 11:39 Discharge Date: Dec 31, 2017 Admitting Diagnosis Seizure, prolonged postictal state (1) Seizure ICD Code: R56.9 - Convulsions Diagnosis: Principal Status: Acute Procedures none Brief History - From Admission History from the ER physician communication, interview of medical records. Patient is extremely poor historian. She really cannot give any history to me. However her mental status hasn't improved as compared to when she initially came to the hospital. She was brought in by EMS after being found by her neighbor at a motel with her door open and sitting on a toilet naked. She was confused in the shower was running. There was no witnessed seizures. She does have history of psychiatry issues and seizures. She has available no stimulator. In the emergency room, patient's Dilantin level was subtherapeutic. While in emergency room, patient had an episode where she became tachycardic, looked as though she was having staring blank stayed. She was given Ativan at that time after which her tachycardia improved. Prior records revealed she had significant history of seizures and was following with Dr. Ellison as an outpatient. Patient herself is not able to give any meaningful history. She denies pretty much every symptoms. She is however noted to be quite warm at the time of my exam. Therefore I had asked for the nurse to check for temperature. CBC/BMP: 12/29/17 0540 12/30/17 0725 Significant Findings Laboratory Tests Test 12/29/17 05:40 12/29/17 08:05 12/30/17 07:25 Red Blood Count 3.48 MIL/MM3 (4.00-5.30) Hemoglobin 11.3 GM/DL (11.6-15.3) Hematocrit 33.2 % (35.0-46.0) Monocytes (%) (Auto) 12.0 % (0.0-8.0) Blood Urea Nitrogen 19 MG/DL (7-18) Creatinine 1.11 MG/DL (0.50-1.00) Chloride Level 108 MEQ/L (98-107) Estimat Glomerular Filtration Rate 50 ML/MIN (>89) 62 ML/MIN (>89) Potassium Level 3.3 MEQ/L (3.5-5.1) Total Creatine Kinase 254 U/L (26-192) Imaging Last Impressions Head CT 12/28/17 0000 Signed Impressions: Service Date/Time: Thursday, December 28, 2017 10:18 - CONCLUSION: Previous surgery right temporal region with subtle malacia. Negative for acute process. Archie Gonzales MD FACR Chest X-Ray 12/28/17 0000 Signed Impressions: Service Date/Time: Thursday, December 28, 2017 12:40 - CONCLUSION: No acute disease. Wilman Stoll MD PE at Discharge GENERAL: Well-developed well-nourished in no distress SKIN: No rashes, ecchymoses or lesions. Cool and dry. Throat: No swelling or lesions NECK: Trachea midline. No JVD Supple, nontender, no meningeal signs. CARDIOVASCULAR: Regular rate and rhythm without murmurs, gallops, or rubs. RESPIRATORY: Clear to auscultation. Breath sounds equal bilaterally. No wheezes , rales, or rhonchi. GASTROINTESTINAL: Abdomen soft, non-tender, nondistended. No guarding. MUSCULOSKELETAL: Extremities without clubbing, cyanosis, or edema. No calf tenderness. Tender upper back but spine is okay. Right forearm is slightly swollen but not warm to touch. It is slightly red in the dorsal area over antecubital where she had previous IV site NEUROLOGICAL: Awake, alert and oriented. Motor and sensory grossly within normal limits. Normal speech. Hospital Course Breakthrough seizure secondary to subtherapeutic Dilantin level. Neurology recommended further increase of Dilantin to 200 mg twice a day. Repeat level therapeutic. Seizure and precautions. Fever and leukocytosis, improved without intervention. Patient without evidence of infection no neck tenderness, pain, headache, numbness and focal weakness. Improved we will continue to monitor Possible heartburn vs adverse reaction from meds or from stimulator. Continue PPI, antireflux mechanism discussed with patient. Will obtain information about stimulator. Dw neuro sxs likely from stimulator which will be adjusted in the clinic in 2 weeks Right FA swelling with slight erythema likely from IV infiltration will monitor for infection. Elevation and warm compresses Chronic kidney disease stage III. Improving. Avoid nephrotoxins Medical conditions are hypertension, Restless leg syndrome, Chronic tobacco abuse and COPD DVT prophylaxis with SCD and early ambulation Pt Condition on Discharge: Stable Discharge Disposition: Disch w/ Home Health Serv Discharge Time: > 30 minutes Discharge Instructions DIET: Follow Instructions for: Heart Healthy Diet Activities you can perform: Regular-No Restrictions Follow up Referrals: Neurology - 2 Weeks with Aniket Avalos MD PhD PCP Follow-up - 2-3 Days New Orders: PHENYTOIN (DILANTIN) - 1 Week New Medications: Phenytoin Extended (Dilantin) 100 Mg Cap 200 MG PO BID for Control Seizures, #120 CAP 0 Refills Levetiracetam (Keppra) 500 Mg Tab 500 MG PO TID for Seizure Control, #90 TAB Pantoprazole (Pantoprazole) 40 Mg Tab 40 MG PO DAILY for Manage Heartburn, #30 TAB Continued Medications: Fluoxetine (Prozac) 20 Mg Cap 20 MG PO DAILY, #30 CAP 0 Refills Hydrochlorothiazide (Hydrochlorothiazide) 12.5 Mg Cap 12.5 MG PO DAILY, #30 CAP 0 Refills Lacosamide (Vimpat) 100 Mg Tab 100 MG PO BID for Control Seizures, #60 TAB 0 Refills Lisinopril (Lisinopril) 20 Mg Tab 20 MG PO DAILY, #30 TAB 0 Refills Discontinued Medications: Levetiracetam (Keppra) 500 Mg Tab 500 MG PO DAILY for Control Seizures, #60 TAB 0 Refills Phenytoin Extended (Dilantin) 100 Mg Cap 100 MG PO DAILY IN THE AM for Control Seizures, #90 CAP 0 Refills Phenytoin Extended (Dilantin) 100 Mg Cap 200 MG PO HS for Control Seizures, #180 CAP 0 Refills Leonard Fontenot MD Dec 31, 2017 16:20
== END 2017-12-31 16:28 | disposition home or self-care (01) ==
LOC: NEPD 08:51 → NEDA 11:39 → NEPGCP 13:14
PROVIDERS: ADMIT Internal Medicine; ATTEND Internal Medicine
DX: G40.909 Epilepsy, unspecified, not intractable, without status epilepticus (principal); R50.9 Fever, unspecified; R06.02 Shortness of breath; R41.82 Altered mental status, unspecified; R05 Cough; E87.6 Hypokalemia; N17.9 Acute kidney failure, unspecified; R00.0 Tachycardia, unspecified; D72.829 Elevated white blood cell count, unspecified; M54.9 Dorsalgia, unspecified; M79.601 Pain in right arm; R94.31 Abnormal electrocardiogram [ECG] [EKG]; I12.9 Hypertensive chronic kidney disease with stage 1 through stage 4 chronic kidney disease, or unspecified chronic kidney disease; N18.3 Chronic kidney disease, stage 3 (moderate); J44.9 Chronic obstructive pulmonary disease, unspecified; G25.81 Restless legs syndrome; F41.9 Anxiety disorder, unspecified; F32.9 Major depressive disorder, single episode, unspecified; F17.200 Nicotine dependence, unspecified, uncomplicated; Z79.899 Other long term (current) drug therapy; Z79.82 Long term (current) use of aspirin
CPT/HCPCS: 70450; 71045; 80048; 80053; 80185; 80307; 81001; 82550; 82552; 83605; 83735; 85025; 87040; 93005; 95819; 96361; 96374; 96376; 97161; 97164; 99285; G0378; G8987; G8988; J1165; J2060; J7030